=== PATIENT | male | born 1940 | race Caucasian/White ===

== ENCOUNTER → 2017-10-03 | Outpatient (CLI) | payer MEDICARE, BC | END | disposition home or self-care (01) | LOC: KCIC MRI 07:58 | DX: S83.242A Other tear of medial meniscus, current injury, left knee, initial encounter (principal); M17.12 Unilateral primary osteoarthritis, left knee; M71.22 Synovial cyst of popliteal space [Baker], left knee; M22.42 Chondromalacia patellae, left knee; I10 Essential (primary) hypertension; Z85.46 Personal history of malignant neoplasm of prostate; Z87.891 Personal history of nicotine dependence; X58.XXXA Exposure to other specified factors, initial encounter; Y93.89 Activity, other specified; Y92.89 Other specified places as the place of occurrence of the external cause; Y99.8 Other external cause status | CPT/HCPCS: 73721 ==

== ENCOUNTER 2017-12-28 06:29 | Day surgery (SDC) | payer MEDICARE, BC ==
[~2017-12-28] VITALS: Ht 177.8 cm; Wt 82.1 kg
[~2017-12-28 06:29] MED LIST: ALPR0.5T6 PO; BUPIVAC MPF-EPI 0.5%-1:200000 30 ML VIAL. ONE; FOLI1TAB16 PO; GLUC100016 PO; OLME1TAB37 PO; OMEG1CAP2 PO; PANT40TA5 PO; PHEN100C PO; POTA10TA12 PO; ROPI1TAB PO; SIMV20TA3 PO
[2017-12-28] MEDS ORDERED: ISOFLURANE 31 TO 60 MINUTES. IH ONE ×2 (06:59)
[2017-12-28] MEDS ORDERED: MORPHINE SULFATE 2 MG/ML VIAL. IV PRN (07:00)
[2017-12-28] MEDS ORDERED: fentaNYL PF VIAL 100 MCG/2 ML VIAL ONE (07:00)
[2017-12-28] MEDS ORDERED: FAMOTIDINE 20 MG/2 ML VIAL ONE (07:00)
[2017-12-28] MEDS ORDERED: ONDANSETRON PF 4 MG/2 ML VIAL. IV PRN (07:00)
[2017-12-28] MEDS ORDERED: DEXAMETHASONE SOD PHOS 20 MG/5 ML VIAL. ONE (07:00)
[2017-12-28] MEDS ORDERED: PROCHLORPERAZINE 10 MG/2 ML VIAL. IV PRN (07:00)
[2017-12-28] MEDS ORDERED: fentaNYL PF VIAL 100 MCG/2 ML VIAL IV PRN ×2 (07:00)
[2017-12-28] MEDS ORDERED: IV RINGERS,LACTATED 1000ML 1,000 ML IV SCH (07:00)
[2017-12-28] MEDS ORDERED: LIDOCAINE 2% PF Vial for OR 5 ML VIAL. ONE (07:00)
[2017-12-28] MEDS ORDERED: ONDANSETRON PF 4 MG/2 ML VIAL. ONE (07:00)
[2017-12-28] MEDS ORDERED: LIDOCAINE 1% PF 2 ML VIAL. ID PRN (07:00)
[2017-12-28] MEDS ORDERED: HYDROmorphone 2 MG/ML VIAL IV PRN (07:00)
[2017-12-28] MEDS ORDERED: PROPOFOL 20 ML IV ONE (07:00)
--- NOTE | 2017-12-28 07:59 | DISCH ---
DISCHARGE INSTRUCTIONS Condition on Discharge Condition on Discharge: Stable Activity After Discharge Activity Instructions for Disc: Activity as tolerated (slow advance to activity as tolerated gradually increased walking and standing) Weight Bearing Status after Di: As tolerated Diet after Discharge Diet after Discharge: Regular Wound Incision Care Wound/Incision Care: Ice to area for comfort, Change dressing (May remove dressing after 2 days, may then shower no soaking until sutures removed) Other wound/incision instructi: report any redness drainage fever chills, calf pain or persistent swelling Contacting the DR. after DC Call your doctor for: Concerns you may have Follow-Up Follow up with: Liana 10 days ALLISON CAMPBELL MD Dec 28, 2017 07:59
[2017-12-28] MEDS ORDERED: HYDR-965 PO (08:00)
[2017-12-28] MEDS ORDERED: ePHEDrine PF IN SALINE 50 MG/5 ML DISP.SYRIN IV ONE (08:05)
[2017-12-28] MEDS ORDERED: SEVOFLURANE 31 TO 60 MINUTES. IH ONE (08:28)
[2017-12-28] MEDS ORDERED: HYDROcodone/APAP 7.5/325MG 1 TAB TABLET PO ONE (09:30)
[2017-12-28] MEDS ORDERED: NEOSTIGMINE METHYLSULFATE 5 MG/5 ML SYRINGE. ONE (09:55)
[2017-12-28] MEDS ORDERED: GLYCOPYRROLATE 1 MG/5 ML VIAL. ONE (09:55)
[2017-12-28 10:15] VITALS: BP 132/61
--- NOTE | 2017-12-28 10:43 | PDOC4 ---
Operative Note Operative Note Date of surgery: 12/28/2017 Preoperative diagnosis: Medial meniscus tear Postoperative diagnosis: Same with chondral flap tear medial femoral condyle and free edge lateral meniscus fraying Operative procedure: Left knee arthroscopy partial medial and lateral meniscectomies chondroplasty medial femoral condyle Surgeon: Liana Anesthesia: Gen. Estimated blood loss: 5 mL Complications: None Operative indications Drew is a 77-year-old male with mechanical pain and swelling in his left knee particular worse with twisting and pivoting affecting his activities of daily living MRI had showed medial meniscal tear and some chondromalacia I gone over with him structure and function of the meniscus the rationale for removing the unstable portion the meniscus the fact that I couldn' t undo any degenerative changes in the knee but I would do the best I could with any loose cartilage that may irritate the joint further and any further ongoing symptoms he on treating the mechanical symptoms would have to be dealt with symptomatically. We also talked about the possibility of infection nerve or blood vessel damage continued pain medical or other anesthetic complications blood clots among others all his questions were answered he wishes to proceed with surgical evaluation and treatment. Operative text: Patient was identified procedure verified patient placed in the supine position on the operating table. After adequate amounts of general anesthesia were administered left lower extremity was prepped and draped in standard sterile fashion with a thigh tourniquet. After timeout was performed patient procedure identified and verified left lower extremity was exsanguinated by Esmarch bandage tourniquet inflated to 250 mmHg a lateral portal was established a medial portal established using spinal needle localization and the knee joint was systematically examined. 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 He also had chondral flap tears of the medial femoral condyle weightbearing surface which was trimmed back to stable tissue as these were not full-thickness in nature using the arthroscopic shaver. ACL was probed and found to be intact he did have some free edge tearing of the lateral meniscus which was trimmed back to stable tissue with arthroscopic shaver the knee was again toured to ensure no loose bodies present and was drained of arthroscopic fluid portals closed with nylon suture injection of half percent plain Marcaine into the portal sites and fat pad sterile dressings were applied he was returned recovery room in stable condition having tolerated procedure well toes were noted be warm pink following deflation of tourniquet ALLISON CAMPBELL MD Dec 28, 2017 10:43
== END 2017-12-28 10:30 | disposition home or self-care (01) ==
LOC: SURG 06:29
PROVIDERS: ATTEND Orthopaedic Surgery
DX: S83.242A Other tear of medial meniscus, current injury, left knee, initial encounter (principal); S83.282A Other tear of lateral meniscus, current injury, left knee, initial encounter; M94.262 Chondromalacia, left knee; F41.9 Anxiety disorder, unspecified; K21.9 Gastro-esophageal reflux disease without esophagitis; I10 Essential (primary) hypertension; R56.9 Unspecified convulsions; G47.33 Obstructive sleep apnea (adult) (pediatric); I25.10 Atherosclerotic heart disease of native coronary artery without angina pectoris; G25.81 Restless legs syndrome; Z98.890 Other specified postprocedural states; Z80.3 Family history of malignant neoplasm of breast; Z80.42 Family history of malignant neoplasm of prostate; Z79.899 Other long term (current) drug therapy; Z88.2 Allergy status to sulfonamides; Z88.1 Allergy status to other antibiotic agents; X58.XXXA Exposure to other specified factors, initial encounter; Y93.89 Activity, other specified; Y92.89 Other specified places as the place of occurrence of the external cause; Y99.8 Other external cause status
CPT/HCPCS: 29880; A7015; C1782; J0690; J1100; J2001; J2405; J2704; J2710; J3010; J3490

== ENCOUNTER → 2020-03-25 | Outpatient (CLI) | payer MEDICARE, BC ==
[~2020-03-25] MED LIST changes: -BUPIVAC MPF-EPI 0.5%-1:200000 30 ML VIAL. ONE; +CONTRAST GIVEN. MC PRN; +HYDR-3165 PO; +IOHEXOL 300 MG/ML 100ML VIAL. IV ONE; +OLME-4 PO; -OLME1TAB37 PO; -PANT40TA5 PO; +PANT40TA77 PO; +SIMV20TA18 PO; -SIMV20TA3 PO
[2020-03-25 10:27] LABS: GFR 72.3
--- NOTE | 2020-03-25 16:59 | RAD ---
EXAM: CT Chest with IV contrast INDICATION: Reason: COLON POLYP CAD / Spl. Instructions: / History: TECHNIQUE: Multi-detector row CT images were acquired from the thoracic inlet through the upper abdo men with the use of IV contrast. Cardiac gating was not utilized on this exam. Sagittal and coronal i mages were acquired from the transaxial data. All CT scans performed at this facility utilize dose op timization techniques as appropriate to the exam, including the following: Automated exposure control and adjustment of the mA and/or KV according to patient size (this includes techniques or standardiz ed protocols for targeted exams where dose is indication/reason for exam). IV CONTRAST: Administered COMPARISON: None FINDINGS: CARDIOVASCULAR: Mild cardiomegaly, status post CABG. No pericardial effusion. Normal caliber thoraci c aorta. MEDIASTINUM & CHRISTY: Asymmetric enlargement to the inferior pole right thyroid lobe with heterogeneous low density could r eflect the presence of a nodule better evaluated with ultrasound. There is a borderline enlarged aortopulmonary window lymph node measuring 8 mm short axis diameter (i mage 22 axial series 2) is present. No mediastinal mass or adenopathy otherwise noted. Esophagus and trachea are unremarkable as well. LUNGS: No pulmonary infiltrate, nodule, or other focal abnormality. A 4 millimeter nodule along the medial aspect of the right major fissure in posterior right upper lobe likely represents an intrapulm onary lymph node (image image 25 of series 2). PLEURAL SPACE: No pleural effusions or pneumothorax. OSSEOUS & SOFT TISSUE: Nearly fully healed sternotomy incision. No acute or aggressive appearing oss eous lesions. ABDOMEN: Partially imaged bilateral renal parapelvic cysts. No hydronephrosis.. IMPRESSION: Post CABG surgical changes with cardiomegaly but no pericardial effusion. No acute superimposed cardiopulmonary process is apparent. Electronically signed by: Rajesh Schultz MD (03/25/2020 4:57 PM) [id number]
== END ==
LOC: CT 09:16
PROVIDERS: ATTEND Surgery
DX: K63.5 Polyp of colon (principal); N28.1 Cyst of kidney, acquired; I25.10 Atherosclerotic heart disease of native coronary artery without angina pectoris
CPT/HCPCS: 36415; 71260; 82378; 82565; 84520; Q9967

== ENCOUNTER → 2020-03-31 | Outpatient (CLI) | payer MEDICARE, BC ==
[~2020-03-31] MED LIST changes: -CONTRAST GIVEN. MC PRN; +IOHEXOL 240 MG/ML 50ML VIAL. PO ONE
--- NOTE | 2020-03-31 14:01 | RAD ---
CT of the abdomen and pelvis with IV contrast and without comparison for colon polyp. TECHNIQUE: Contiguous helical axial images are obtained through the abdomen and pelvis following admi nistration of IV contrast. Sagittal and coronal reformations are evaluated. FINDINGS: Lung bases are clear. There is a 5 mm cystic lesion of the left lobe the liver for which no additional follow-up is required. Liver is otherwise unremarkable. Gallbladder, pancreas, spleen, an d bilateral adrenal glands are normal. There are simple parapelvic cysts bilaterally. No additional f ollow-up is required. No focal parenchymal abnormalities involving either kidney. No hydronephrosis. The urinary bladder is fluid distended and grossly unremarkable. There are postsurgical changes throu ghout the pelvis. No free or loculated fluid collections are identified. No suspicious mesenteric, or retroperitoneal lymphadenopathy is seen. There are innumerable sigmoid diverticula with no evidence of acute diverticulitis. Evaluation of large and small bowel is limited by inhomogeneous distribution of enteric contrast, however no areas of focal bowel wall thickening or bowel dilatation are identif ied. No suspicious osseous abnormalities are seen. There is a superior endplate Schmorl's node at L3 of doubtful clinical significance. IMPRESSION: 1. No CT evidence of malignancy. PQRS Compliance Statement: One or more of the following individualized dose reduction techniques were utilized for this examinat ion: 1. Automated exposure control 2. Adjustment of the mA and/or kV according to patient size 3. Use of iterative reconstruction technique Electronically signed by: Guero Rahman MD (03/31/2020 1:58 PM) [id number]
== END ==
LOC: CT 09:20
PROVIDERS: ATTEND Pediatrics
DX: K63.5 Polyp of colon (principal)
CPT/HCPCS: 74177; Q9966; Q9967